=== PATIENT | male | born 1975 | race Caucasian/White ===

== ENCOUNTER 2016-05-04 08:40 | Emergency (ER) | payer OTHER ==
[2016-05-04 08:53] VITALS: BP 137/79
--- NOTE | 2016-05-04 09:06 | UC ---
Eye Complaint HPI - History of Current Complaint Chief Complaint: Freddy Stated Complaint: EYE ISSUE Time Seen by Provider: 05/04/16 08:43 Hx Obtained From: Patient Onset/Duration: Sudden Onset - started last evening with irritation upper L eye lid, awoke with "crusty" on lids, but no discharge since. now lower lid looks red too. denies feeling of FB or pain in eye, no visual changes. has tried no treatment Timing: Constant Severity Initially: Mild Severity Currently: Mild Character: Dull Aggravating Factor(s): Other - touch Alleviating Factor(s): Nothing Associated Signs And Symptoms: Positive: Negative Related History: Similar Episode - has chronic blepharitis - Risk Factors Penetrating Injury Risk Factor: Negative - Allergies/Home Medications Allergies/Adverse Reactions: Allergies Allergy/AdvReac Type Severity Reaction Status Date / Time No Known Allergies Allergy Verified 05/04/16 08:45 PMH/Surg Hx/FS Hx/Imm Hx Previously Healthy: Yes Endocrine History Of: Denies: Diabetes, Thyroid Disease Cardiovascular History Of: Denies: Cardiac Disorders, Hypertension Respiratory History Of: Denies: COPD, Asthma GI/ History Of: Denies: Ulcer - Surgical History Surgical History: Yes Surgery Procedure, Year, and Place: LEFT ARM, 2002, [place]. LEFT KNEE, 2000, [facility] [place]. cholecystectomy - Family History Known Family History: Positive: None Negative: Cardiac Disease - Social History Occupation: Employed Full-time - tool engineer Alcohol Use: Occasionally Substance Use Type: None Smoking Status (MU): Never Smoked Tobacco - Immunization History Most Recent Influenza Vaccination: none Review of Systems Constitutional: Negative Eyes: Eye Redness ENT: Negative Respiratory: Negative Cardiovascular: Negative Neurological: Negative Psychological: Negative All Other Systems Reviewed And Are Negative: Yes Physical Exam Triage Information Reviewed: Yes Appearance: Well-Appearing, No Pain Distress, Well-Nourished Vital Signs: Initial Vital Signs Temp 97.6 F 05/04/16 08:46 Pulse 85 05/04/16 08:46 Resp 16 05/04/16 08:46 BP 137/79 05/04/16 08:46 Pulse Ox 96 05/04/16 08:46 Vital Signs Reviewed: Yes Eyes: Positive: Conjunctiva Clear, Other: - upper L lid mildly swollen and red, puffy appearance, lower lid red without swelling, no discharge. PERRLA, no chalazion or heordeolum ENT Exam: Normal Respiratory Exam: Normal Cardiovascular Exam: Normal Neurological Exam: Normal Neurological: Positive: Alert Psychological Exam: Normal Skin Exam: Normal Eye Complaint Course/Dx - Differential Dx/Diagnosis Differential Diagnosis/HQI/PQRI: Conjunctivitis, Corneal Abrasion, Foreign Body , Periorbital Cellulitis, Other - blepharitis Provider Diagnoses: blepharitis Discharge - Discharge Plan Condition: Good Disposition: HOME Prescriptions: Sulfacetamide 10 % OPTH.RIGO* [Sulamyd 10% Opth*] 2 drop LEFT EYE QID #1 btl Patient Education Materials: Blepharitis (ED) Referrals: Darryl Barnes MD [Primary Care Provider] - 3 Days (if no better) Additional Instructions: apply warm compresses for comfort return if symptoms worsen at any time
== END 2016-05-04 09:22 | disposition home or self-care (01) ==
LOC: UCEAST 08:40
DX: H01.004 Unspecified blepharitis left upper eyelid (principal)
CPT/HCPCS: 99212; G0463

== ENCOUNTER 2016-10-05 01:51 | Observation (INO) | payer OTHER ==
[2016-10-05] MEDS ORDERED: Nitroglycerin 2% OINT* 1 GM PAK TOPICAL ONE (02:42)
[2016-10-05] MEDS ORDERED: Aspirin Low Dose CHEW TAB* 81 MG PO ONE (02:42)
[2016-10-05 03:27] LABS: Hematocrit 46 % (42-52); Hemoglobin 15.8 g/dl (14.0-18.0); Mean Corpuscular HGB Conc 35 g/dl (31-36); Mean Corpuscular Hemoglobin 31 pg (27-31); Mean Corpuscular Volume 91 fL (80-94); Mean Platelet Volume 8 um3 (7.4-10.4); Red Blood Count 5.04 10^6/ul (4.0-5.4); Red Cell Distribution Width 13 % (10.5-15); White Blood Count 7.4 10^3/ul (3.5-10.8)
[2016-10-05 03:44] LABS: Albumin 4.2 g/dL (3.2-5.2); BUN/Creatinine Ratio 22.2 (8-20); Calcium 9.3 mg/dL (8.6-10.3); EGFR African American 120.2 (>60); EGFR Non-African American 93.5 (>60); Magnesium 2.2 mg/dL (1.9-2.7); Potassium 3.9 mmol/L (3.5-5.0); Total Bilirubin 0.4 mg/dL (0.2-1.0); Total Protein 7.2 g/dL (6.4-8.9)
[2016-10-05] MEDS ORDERED: Acetaminophen TAB* 325 MG PO PRN (07:51)
--- NOTE | 2016-10-05 07:51 | RAD ---
HISTORY: Chest pain COMPARISONS: November 09, 2015 VIEWS:1: Single frontal portable view of the chest at 3:31 AM FINDINGS: LINES AND TUBES: None. CARDIOMEDIASTINAL SILHOUETTE: The cardiomediastinal silhouette is normal for portable technique. PLEURA: The costophrenic angles are sharp. No pleural abnormalities are noted. LUNG PARENCHYMA: The lungs are clear. ABDOMEN: The upper abdomen is clear. There is no subphrenic gas. BONES AND SOFT TISSUES: No bone or soft tissue abnormalities are noted. IMPRESSION: NO ACTIVE CARDIOPULMONARY DISEASE.
[2016-10-05 08:25] LABS: C Reactive Protein 4.85 mg/L (< 5.00)
[2016-10-05 08:59] LABS: Erythrocyte Sed Rate 12 mm/Hr (0-14)
[2016-10-05] MEDS ORDERED: Allopurinol TAB* 100 MG PO SCH (09:00)
--- NOTE | 2016-10-05 10:04 | HP ---
[facility] * HISTORY AND PHYSICAL: DATE OF ADMISSION: 10/05/16 PRIMARY CARE PROVIDER: The patient is unsure, but states he is seen at [facility]. CHIEF COMPLAINT: Chest pain. HISTORY OF PRESENT ILLNESS: Mr. Fuller is a 41-year-old man who states that off and on for the last couple of weeks he has been having tightness in the left upper chest. He states that it does seem to come and go. He does not necessarily tie it to any specific activity. The patient states that the pain does not always come on with strenuous activity such as climbing a flight of stairs or walking. The patient states that approximately 1 a.m. the pain was more intense than it had been. He felt a warm sensation across his chest and therefore decided to be seen in the emergency room. He states that he has had no associated shortness of breath, nausea, or diaphoresis with any of the episodes of chest discomfort. Yesterday, he states that he and his were hanging lights up in the garage, so he wondered if it may have been related to that. He also admits to raking a lot of stone recently. The patient states that he does not otherwise recall any trauma to his chest. 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 He states that some days he is at desk , but other days he is incredibly busy at work. Again, he has no concrete association of the pain with any activity. The patient did have nitro paste placed in the emergency room and his chest tightness went away within 5 to 10 minutes. PAST MEDICAL HISTORY: Reactive arthritis. PAST SURGICAL HISTORY: 1. Left knee washout for septic arthritis many years ago. 2. Cholecystectomy. MEDICATIONS: Allopurinol 100 mg p.o. daily. ALLERGIES: No known drug allergies. FAMILY HISTORY: Mom at the age of 56 of breast cancer. Dad is living. He is 73 and healthy. The patient has 1 sister who is healthy. SOCIAL HISTORY: The patient is a nonsmoker. He drinks alcohol on occasion. He works at [employer]. He is . He has 1 child. His is his healthcare proxy. REVIEW OF SYSTEMS: He denies any fever, chills, or anorexia. He admits to chest discomfort as above. No cough. No shortness of breath. No nausea, abdominal pain, or constipation. He does admit to chronic diarrhea. No hemato- chezia, no hematuria, no dysuria, no focal weakness or sensory loss. No sudden change in vision. No dysphagia. He does complain of discomfort in his bilateral elbows. He thinks it is related to raking the stones. No rashes. No anxiety or depression. PHYSICAL EXAMINATION GENERAL: The patient is a well-developed, obese, middle-aged male, sitting on the stretcher, in no acute distress. VITAL SIGNS: Blood pressure 114/73, pulse 69, respirations 14, temp 97.8, O2 sat 96% on room air. HEENT: Pupils are equal, round. Extraocular muscles are intact. Oropharynx is clear. Oral mucosa is moist. NECK: There is no submandibular, cervical, or supraclavicular adenopathy. Thyroid is not enlarged. No thyroid nodules noted. PULMONARY: Lungs are clear to auscultation bilaterally. CARDIAC: Normal S1 and S2. Regular rate and rhythm. I do not appreciate any murmurs. There is no lower extremity edema. There is no pain to palpation over the left side of the chest. ABDOMEN: Bowel sounds are present. Abdomen is soft, nontender, nondistended. MUSCULOSKELETAL: There is no cyanosis or clubbing of the digits. There is full active range of motion of all 4 extremities. SKIN: Warm and dry. There are no rashes. NEURO: Cranial nerves II through XII are grossly intact. Sensation is intact to light touch throughout. Strength is 5/5 and symmetric to both upper and lower extremities bilaterally. PSYCH: The patient is alert. He is oriented x3. Affect appears appropriate. DIAGNOSTIC STUDIES/LAB DATA: Sodium 136, potassium 3.9, chloride 105, CO2 25, BUN 20, creatinine 0.90, glucose 122, calcium 9.3, magnesium 2.2, bilirubin 0.4. AST 29, ALT 49, alk phos 62, CPK 82. Troponin 0.0. BNP 9. Albumin 4.2. INR 0.9. D- dimer less than 200. WBC 7.4, hemoglobin 15.8, hematocrit 46, platelets 171. EKG reveals normal sinus rhythm without any acute ST-T wave abnormalities and is essentially unchanged from EKG in 2016. Chest x-ray, my inspection appears to be clear without any acute findings. ASSESSMENT AND PLAN: Mr. Fuller is a 41-year-old obese male, with no significant past medical history outside of reactive arthritis, on daily allopurinol, who presents to the emergency room with complaints of intermittent chest pain over the last 2 weeks. 1. Chest pain. At this point, I am not convinced that the patient's chest pain is cardiac in nature. He states it is not necessarily associated with strenuous activity. He states he has been raking a lot of stone recently, so I do question whether or not this may be musculoskeletal pain. The patient will be admitted under observation status today to be ruled out for an acute coronary syndrome as well as to have his rhythm monitored. If the patient's troponins bump, he will be converted to inpatient. If they remain negative and no significant arrhythmias are noted, the patient will be discharged home later this afternoon and set up for an outpatient stress test. Of note, the patient MARICRUZ risk score is 1 only for history of anginal episodes. 2. Reactive arthritis. Continue allopurinol 100 mg p.o. daily. 3. DVT prophylaxis: According to the Adult Thrombosis Prophylaxis Risk Factor Assessment Guide, the patient has a total risk factor score of 1 making him low risk. Ambulation will be utilized for DVT prophylaxis. 4. Code status is full. TIME SPENT: 55 minutes was spent admitting this patient. [id number]/[facility] #: [id number] [place]
[2016-10-05] MEDS ORDERED: Cyclobenzaprine TAB* 10 MG PO ONE (12:12)
[2016-10-05 15:10] VITALS: BP 123/67
== END 2016-10-05 16:45 | disposition home or self-care (01) ==
LOC: ED 01:51 → MEDTELE 07:47
PROVIDERS: ADMIT Hospitalist; ATTEND Hospitalist
DX: R07.9 Chest pain, unspecified (principal); R00.1 Bradycardia, unspecified; M02.30 Reiter's disease, unspecified site
CPT/HCPCS: 36415; 71010; 80053; 80061; 82550; 83735; 83880; 84484; 85025; 85379; 85610; 85652; 85730; 86140; 93005; 99284; A9270-GY; G0378

== ENCOUNTER 2019-04-20 15:14 | Emergency (ER) | payer OTHER ==
--- NOTE | 2019-04-20 15:37 | ED ---
Complex/Multi-Sys Presentation - HPI Summary HPI Summary: Patient is a 44 y/o M presenting to the ED for a chief complaint of left knee swelling and pain that began the night of 04/19/19. Patient is present with his . Patient describes the knee pain as a tightness sensation in the posterior aspect of the left knee that has worsened since initial onset. He states his pain is similar to a prior episode of reactive arthritis in the same knee. For the last 2 weeks, patient has also had cold symptoms including nasal congestion , dry cough, and rhinorrhea. Patient denies decreased ROM. Patient's states she "has a virus" so she believes the patient may also have a viral infection. During the last episode of reactive arthritis exacerbation approximately 1 year ago, patient was seen a [facility] and was initially treated for Lyme disease. He was later found to have a septic joint which was drained, washed out, and cleaned. He later had a follow up with a manager product support who suspects the septic joint may have been caused by an autoimmune response after the patient traveled to the [facility]. While at the [facility], he had infectious exposure to several people. The current left knee swelling is improved from the prior occurrence. PMHx is significant for reactive arthritis. Patient denies having a PCP in [place]. 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 - Onset/Duration: Sudden Onset, Still Present Timing: Constant Severity Currently: Moderate Severity Initially: Moderate Associated Signs And Symptoms: Positive: Cough - Dry, Edema - Left knee, Fever - In vitals, 100.0 F - Allergies/Home Medications Allergies/Adverse Reactions: Allergies Allergy/AdvReac Type Severity Reaction Status Date / Time No Known Allergies Allergy Verified 05/04/16 08:45 Home Medications: Home Medications NK [No Home Medications Reported] 04/20/19 [History Confirmed 04/20/19] PMH/Surg Hx/FS Hx/Imm Hx Previously Healthy: Yes Endocrine/Hematology History: Denies: Hx Diabetes, Hx Thyroid Disease Cardiovascular History: Reports: Hx Angina Denies: Hx Coronary Artery Disease, Hx Hypercholesterolemia, Hx Hypertension , Hx Myocardial Infarction, Hx Valvular Heart Disease, Other Cardiovascular Problems/Disorders Respiratory History: Denies: Hx Asthma, Hx Chronic Obstructive Pulmonary Disease (COPD), Other Respiratory Problems/Disorders GI History: Reports: Hx Gall Bladder Disease, Other GI Disorders - rupal Denies: Hx Ulcer Musculoskeletal History: Reports: Hx Arthritis - reactive, Other Musculoskeletal History - septic knee Sensory History: Denies: Hx Contacts or Glasses, Hx Legally Blind, Hx Deafness, Hx Hearing Aid Opthamlomology History: Denies: Hx Contacts or Glasses, Hx Legally Blind EENT History: Denies: Hx Deafness - Surgical History Surgical History: Yes Surgery Procedure, Year, and Place: LEFT ARM, 2002, [place]. LEFT KNEE, 2000, [place]. cholecystectomy Hx Anesthesia Reactions: No Infectious Disease History: No Infectious Disease History: Denies: Hx Clostridium Difficile, Hx Hepatitis, Hx Human Immunodeficiency Virus (HIV), Hx of Known/Suspected MRSA, Hx Shingles, Hx Tuberculosis, Hx Known/ Suspected VRE, Hx Known/Suspected VRSA, History Other Infectious Disease, Traveled Outside the [place] in Last 30 Days - Family History Known Family History: Negative: Cardiac Disease - Social History Occupation: Employed Full-time Lives: With Family Alcohol Use: Occasionally Hx Substance Use: No Substance Use Type: Reports: None Hx Tobacco Use: No Smoking Status (MU): Never Smoked Tobacco Review of Systems Positive: Fever - In vitals, 100.0 F Positive: Nasal Discharge, Other - Positive nasal congestion Positive: Cough - Dry Positive: Arthralgia - Left knee, Edema - Left knee. Negative: Decreased ROM All Other Systems Reviewed And Are Negative: Yes Physical Exam - Summary Physical Exam Summary: Constitutional: Well-developed, Well-nourished, Alert. (-) Distressed Skin: Warm, Dry HENT: Normocephalic; Atraumatic Eyes: Conjunctiva normal Neck: Musculoskeletal ROM normal neck. (-) JVD, (-) Stridor, (-) Nuchal rigidity Cardio: Rhythm regular, rate tachycardic. Heart sounds normal; Intact distal pulses; Radial pulses are 2+ and symmetric. (-) Murmur Pulmonary/Chest wall: Effort normal. (-) Respiratory distress, (-) Wheezes, (-) Rales Abd: Soft, (-) tenderness, (-) Distension, (-) Guarding, (-) Rebound Musculoskeletal: Mild swelling of the left knee, no erythema, full ROM of the knee. No effusions. tenderness L calf. Lymph: (-) Cervical adenopathy Neuro: Alert, Oriented x3 Psych: Mood and affect Normal Triage Information Reviewed: Yes Vital Signs On Initial Exam: Initial Vitals Temp Pulse Resp BP Pulse Ox 100.0 F 102 18 120/84 98 04/20/19 15:15 04/20/19 15:15 04/20/19 15:15 04/20/19 15:15 04/20/19 15:15 Vital Signs Reviewed: Yes Procedures - Sedation Patient Received Moderate/Deep Sedation with Procedure: No Diagnostics - Vital Signs Vital Signs Temp Pulse Resp BP Pulse Ox 04/20/19 15:15 100.0 F 102 18 120/84 98 - Laboratory Result Diagrams: 04/20/19 15:53 04/20/19 15:53 Lab Statement: Any lab studies that have been ordered have been reviewed, and results considered in the medical decision making process. - Radiology Knee X-ray Radiology Interpretation Completed By: Radiologist Summary of Radiographic Findings: Knee X-ray IMPRESSION: SUPERIOR AND INFERIOR PATELLAR SPURRING. THERE IS LUCENCY SEEN THROUGH THE SUPERIOR PATELLAR SPUR WHICH MAY INDICATE A FRACTURE OF UNCERTAIN ACUITY. Reviewed by Dr. Blakely. - Ultrasound Venous Doppler Study Ultrasound Interpretation Completed By: Radiologist Summary of Ultrasound Findings: Venous Doppler Study IMPRESSION: NO LEFT LOWER EXTREMITY DEEP VEIN THROMBOSIS. Reviewed by Dr. Blakely. Complex Multi-Symp Course/Dx Course Of Treatment: 44 y/o male w hx reactive arthritis p/w L knee pain. - full ROM of the left knee, no erythema, minimal tenderness. - patient has low- grade temperature, but reports recent URI symptoms. Labwork without leukocytosis, elevated CRP. X-ray shows a possible small patellar fracture, no known trauma, do not suspect this is cause of patient's pain. No effusions on exam, d/w patient risk of knee arthrocentesis given lack of symptoms and low suspicion for septic joint. Given calf pain was also evaluated for DVT, DVT negative. D/w orthpedic [facility] who also agrees that patient does not have septic joint. Will f/u w orthopedics outpatient. - Diagnoses Provider Diagnoses: Left knee pain, URI (upper respiratory infection) Discharge ED - Sign-Out/Discharge Documenting (check all that apply): Patient Departure - Discharge - Discharge Plan Condition: Stable Disposition: HOME Patient Education Materials: Knee Pain (ED) Referrals: [facility] [address] [Outside] Kel Self MD [Medical Doctor] - Additional Instructions: You were seen in the emergency department for knee pain upper respiratory symptoms. Your x-ray showed a possible small fracture of your patella, you can follow-up with orthopedics regarding this. Your ultrasound did not show any evidence of blood clot. Please follow up with your primary care doctor in next 2-3 days and return to emergency department for fevers, swelling of the knee, redness of the knee, inability to bend your knee or walk, worsening or concerning symptoms. It was a pleasure taking care of you today. - Billing Disposition and Condition Condition: STABLE Disposition: Home - Attestation Statements Document Initiated by Maximiliano: Yes Documenting Scribe: Magi Moya Provider For Whom Maximiliano is Documenting (Include Credential): Familia Blakely MD Scribe Attestation: Magi Bonilla, scribed for Familia Blakely MD on 04/21/19 at 0959. Scribe Documentation Reviewed: Yes Provider Attestation: The documentation as recorded by the Magi gomez accurately reflects the service I personally performed and the decisions made by , Familia Blakely MD Status of Scribe Document: Viewed
[2019-04-20] MEDS ORDERED: Lidocaine 1% INJ* 10 MG/ML 30 ML SDV INJ ONE (15:56)
[2019-04-20 16:11] LABS: ABS Eosinophils 0.2 10^3/ul (0-0.6); ABS Lymphocytes 1.6 10^3/ul (1.0-4.8); ABS Monocytes 0.8 10^3/ul (0-0.8); ABS Neutrophils 5.6 10^3/ul (1.5-7.7); Eosinophil % 1.9 %; Hematocrit 42 % (42-52); Hemoglobin 14.8 g/dL (14.0-18.0); Lymphocyte % 19.5 %; Mean Corpuscular HGB Conc 36 g/dL (31-36); Mean Corpuscular Hemoglobin 32 pg (27-31); Mean Corpuscular Volume 90 fL (80-94); Mean Platelet Volume 8.2 fL (7.4-10.4); Platelet Count 164 10^3/uL (150-450); Red Blood Count 4.61 10^6 /uL (4.18-5.48); Red Cell Distribution Width 12 % (10-15); White Blood Count 8.2 10^3/uL (3.5-10.8)
[2019-04-20 16:23] LABS: Albumin 4.3 g/dL (3.2-5.2); Albumin/Globulin Ratio 1.5 (1-3); BUN/Creatinine Ratio 10.3 (8-20); C Reactive Protein 83.89 mg/L (<8.01); Calcium 9.3 mg/dL (8.6-10.3); EGFR African American 75.6 (>60); EGFR Non-African American 62.5 (>60); Globulin 2.9 g/dL (2-4); Potassium 4.3 mmol/L (3.5-5.0); Total Bilirubin 0.7 mg/dL (0.2-1.0); Total Protein 7.2 g/dL (6.4-8.9)
[2019-04-20] MEDS ORDERED: Acetaminophen TAB* 325 MG PO ONE (17:02)
[2019-04-20 17:29] VITALS: BP 120/87
== END 2019-04-20 17:26 | disposition home or self-care (01) ==
LOC: ED 15:14
DX: M25.562 Pain in left knee (principal); R60.0 Localized edema; J06.9 Acute upper respiratory infection, unspecified
CPT/HCPCS: 36415; 80053; 85025; 86140; 99282

== ENCOUNTER 2019-05-01 14:35 | Emergency (ER) | payer OTHER ==
[2019-05-01 14:59] VITALS: BP 129/82
--- OUTSIDE RECORDS SUMMARY | 2019-05-01 15:11 | XMS REPORT | Summary of Care ---
:1975 Author Organization [facility] Address [address] [facility] [place] [address] Care Team Providers Name Role Phone Cuate Josue Primary Care Provider Other Unavailable Unavailable Reason for Visit Reason Comments Cough pt presents for cough/congestion/fever/body aches/swollen joints. Denies diarrhea/nausea or vomiting. Started about 2 weeks ago. Encounter Details Date Type Department Care Team Description 04/23/2019 Office Visit [facility] Tristian Best MD Febrile illness (Primary Dx); Practice [address] Cough; [address] [place] [address] Reactive arthritis (HCC) [place] [address] [phone] Allergies No Known Allergiesdocumented as of this encounter (statuses as of 04/23/2019) Medications Medication Sig Dispensed Refills Start Date End Date Status doxycycline Take 1 Tab by 20 Tab 0 04/23/2019 Active (VIBRAMYCIN) 100 MG mouth TWICE Oral Tab DAILY. documented as of this encounter (statuses as of 04/23/2019) Active Problems Problem Noted Date Reactive arthritis 05/12/2012 Overview: Multiple site involved; presented with monoarthritis after visit to [facility], has had circinate balanitis, urethritis, blepharitis and mild arthritis Gout 05/12/2012 documented as of this encounter (statuses as of 04/23/2019) Immunizations Name Administration Dates Next Due Influenza (IM) Preservative Free 12/22/2018, 12/01/2017 documented as of this encounter Social History Tobacco Use Types Packs/Day Years Used Date Never Smoker Smokeless Tobacco: Never Used Alcohol Use Drinks/Week oz/Week Comments Yes 10 Standard drinks or equivalent 10.0 Sex Assigned at Date Recorded Not on file documented as of this encounter Last Filed Vital Signs Vital Sign Reading Time Taken Comments Blood Pressure 104/68 04/23/2019 1:55 PM EST Pulse 96 04/23/2019 1:55 PM EST Temperature 37.4 04/23/2019 1:55 PM EST C (99.3 F) Respiratory Rate - - Oxygen Saturation 97% 04/23/2019 1:55 PM EST Inhaled Oxygen Concentration - - Weight 109 kg (240 lb 3.2 oz) 04/23/2019 1:55 PM EST Height 175.3 cm (5' 9") 04/23/2019 1:55 PM EST Body Mass Index 35.47 04/23/2019 1:55 PM EST documented in this encounter Progress Notes Tristian Best MD - 04/23/2019 1:40 PM EST PATIENT: Kevin Fuller : 1975 DATE OF SERVICE: 04/23/2019 CHIEF COMPLAINT: Chief Complaint Patient presents with ? Cough pt presents for cough/congestion/fever/body aches/swollen joints. Denies diarrhea/nausea or vomiting. Started about 2 weeks ago. Subjective HISTORY OF PRESENT ILLNESS: Kevin Fuller is a 44-y.o. male. In for URI symptoms x 2 weeks In those 2 weeks felt better just 1 day a week ago. ST in the beginning , nasal congestion colored mucus currently , no MENDIOLA, + coughup mucus. Not SOB, fever to 100 1 week ago and last 3 days night sweats. In that time period went to ER for left knee pain. Hx of septic knee 10 years ago. . The ER did ultrasound and x ray and labs and told some inflammation crp is 83 with normal = 8 Normal cbc and cmp . Not see ortho yet. Leg got worse but better today , No recent travel but works at [employer] and is all over the place Past Medical History: Diagnosis Date ? Blepharitis ? Gout ? Obesity ? Reactive arthritis (HCC) Family History Problem Relation Age of Onset ? Diabetes Maternal Grandmother ? Diabetes Paternal Grandmother ? Breast Cancer Mother 54 No current outpatient medications on file. No current facility-administered medications for this visit. No Known Allergies Social History Socioeconomic History ? Marital status: Spouse name: Not on file ? Number of children: Not on file ? Years of education: Not on file ? Highest education level: Not on file Occupational History ? Not on file Social Needs ? Financial resource strain: Not on file ? Food insecurity Worry: Not on file Inability: Not on file ? Transportation needs Medical: Not on file Non-medical: Not on file Tobacco Use ? Smoking status: Never Smoker ? Smokeless tobacco: Never Used Substance and Sexual Activity ? Alcohol use: Yes Alcohol/week: 10.0 standard drinks Types: 10 Standard drinks or equivalent per week ? Drug use: No ? Sexual activity: Yes Lifestyle ? Physical activity Days per week: Not on file Minutes per session: Not on file ? Stress: Not on file Relationships ? Social connections Talks on phone: Not on file Gets together: Not on file Attends church service: Not on file Active member of club or organization: Not on file Attends meetings of clubs or organizations: Not on file Relationship status: Not on file ? Intimate partner violence Fear of current or ex partner: Not on file Emotionally abused: Not on file Physically abused: Not on file Forced sexual activity: Not on file Other Topics Concern ? Back Care Not Asked ? Bike Helmet Not Asked ? Blood Transfusions Not Asked ? Caffeine Concern Not Asked ? Exercise Not Asked ? Hobby Hazards Not Asked ? International Travel Not Asked ? Service Not Asked ? Occupational Exposure Not Asked ? Seat Belt Not Asked ? Self-Exams Not Asked ? Sleep Concern No ? Special Diet No ? Stress Concern No ? Weight Concern Yes Social History Narrative Freddy diaz Lives with . Over the last 2 weeks, have you been feeling down, depressed, anxious, or hopeless?: 0 Over the past 2 weeks, have you felt little interest or pleasure in doing things ?: 0 REVIEW OF SYSTEMS: ROS Objective PHYSICAL EXAM: VITALS: BP 104/68 (BP Location: Right arm, Patient Position: Sitting) | Pulse 96 | Temp 99.3 F (37.4 C) | Ht 5' 9" (1.753 m) | Wt 240 lb 3.2 oz ( 109 kg) | SpO2 97% | BMI 35.47 kg/m Body mass index is 35.47 kg/m. Physical Exam Vitals signs reviewed. Constitutional: General: He is not in acute distress. Appearance: He is ill-appearing. He is not toxic-appearing. HENT: Ears: Comments: Ears - bilateral TM's and external ear canals normal, right external ear normal, left externalear normal Mouth/Throat: Pharynx: Oropharynx is clear. Eyes: Comments: Eyes always inflamed Cardiovascular: Rate and Rhythm: Normal rate and regular rhythm. Pulmonary: Effort: Pulmonary effort is normal. No respiratory distress. Breath sounds: Normal breath sounds. No wheezing or rales. Musculoskeletal: Comments: Knee slight swollen and not red or hot with adequate ROM Lymphadenopathy: Cervical: No cervical adenopathy. CXR normal my read Maybe little patchy on the left ASSESSMENT / IMPRESSION: ICD-9-CM ICD-10-CM 1. Febrile illness . Flu shouldve been over by 2 weeks but I tested him anyway just to see what we are dealing with . This illness began 2 weeks ago so timing not really match concerns for heredia virus. I dont feel his fever is due to the knee Getting the labs to see if crp improving Otherwise since sweats and symptoms x 2 weeks will give antibiotics 780.60 R50.9 CBC WITH DIFFERENTIAL C-REACTIVE PROTEIN FLU A/FLU B/RSV PCR ASSAY (TESTED AT [facility] ONLY) FLU A/FLU B/RSV PCR ASSAY (TESTED AT [facility] ONLY) 2. Cough 786.2 R05 XR CHEST 2 VIEW PA AND LATERAL (STANDARD) 3. Reactive arthritis (HCC) I believe the knee is a reaction to the resoiratory arthritis 099.3 M02.30 711.10 Plan Author: Tristian Best MD 04/23/2019 14:01 documented in this encounter Plan of Treatment Name Type Priority Associated Diagnoses Date/Time XR CHEST 2 VIEW PA AND Imaging Routine Cough 04/23/2019 2:21 PM LATERAL (STANDARD) EST CBC WITH DIFFERENTIAL Lab Routine Febrile illness 04/23/2019 2:34 PM EST C-REACTIVE PROTEIN Lab Routine Febrile illness 04/23/2019 2:34 PM EST FLU A/FLU B/RSV PCR ASSAY Lab Routine Febrile illness 04/23/2019 2:15 PM (TESTED AT [facility] EST ONLY) Name Type Priority Associated Diagnoses Order Schedule XR CHEST 2 VIEW PA AND Imaging Routine Cough Expected: 04/23/2019, LATERAL (STANDARD) Expires: 04/22/2020 FLU A/FLU B/RSV PCR Lab Routine Febrile illness 1 Occurrences starting ASSAY (TESTED AT [facility] 04/23/2019 until LAB ONLY) 10/20/2019 Health Maintenance Due Date Last Done Comments DTaP/Tdap/Td Vaccines (1 - 01/06/1987 Tdap) DIABETES SCREENING 11/27/2019 11/26/2018 DEPRESSION SCREENING 04/22/2020 04/23/2019 LIPID DISORDER SCREENING 11/27/2023 11/26/2018 INFLUENZA VACCINE Completed 12/22/2018, 12/01/2017 HEPATITIS A IMMUNIZATION Aged Out No longer eligible based SERIES on patient's age to complete this topic HPV IMMUNIZATION SERIES Aged Out No longer eligible based on patient's age to complete this topic MENINGOCOCCAL VACCINE IMM Aged Out No longer eligible based on patient's age to complete this topic PNEUMOCOCCAL 0-64 YRS Aged Out No longer eligible based on patient's age to complete this topic documented as of this encounter Results Not on filedocumented in this encounter Visit Diagnoses Diagnosis Cough Febrile illness Fever, unspecified Reactive arthritis (HCC) Cherry's disease documented in this encounter Insurance Payer Benefit Plan / Subscriber ID Effective Dates Phone Address Type Group LIFETIME LIFETIME BENEFIT [id number] 2016-Lisa [employer] Guarantor Name Account Type Relation to Date of Phone Billing Address Patient Kevin Fuller Personal/Family 1975 [address] [facility] (Home) [facility] [phone] [place], [place] (Work) [id number] documented as of this encounter
--- OUTSIDE RECORDS SUMMARY | 2019-05-01 15:11 | XMS REPORT | Summary of Care ---
:1975 Author Organization [facility] Address [address] [place] [address] Care Team Providers Name Role Phone JoseloCuate Arianne Primary Care Provider Other Unavailable Unavailable Reason for Visit Reason Comments Leg Pain pt states pain has radiated to left ankle. hurts to walk/ stand ( ongoing for 2 weeks ) Encounter Details Date Type Department Care Team Description 04/30/2019 Office Visit [facility] Shadia Mascorro, Ankle pain, Practice PA-C unspecified [address] [facility] [facility] chronicity, [place] [address] [place] [address] unspecified laterality [phone] (Primary Dx) Allergies No Known Allergiesdocumented as of this encounter (statuses as of 04/30/2019) Medications Medication Sig Dispensed Refills Start Date End Date Status doxycycline Take 1 Tab by 20 Tab 0 04/23/2019 Active (VIBRAMYCIN) 100 MG mouth TWICE Oral Tab DAILY. ibuprofen (ADVIL) 200 Take 200 mg by 0 Active MG Oral Tab mouth EVERY SIX HOURS NEEDED for Pain. colchicine (COLSALIDE) Take 1 Tab by 30 Tab 0 04/30/2019 Active 0.6 MG Oral Tab mouth DAILY. documented as of this encounter (statuses as of 04/30/2019) Active Problems Problem Noted Date Reactive arthritis 05/12/2012 Overview: Multiple site involved; presented with monoarthritis after visit to [facility], has had circinate balanitis, urethritis, blepharitis and mild arthritis Gout 05/12/2012 documented as of this encounter (statuses as of 04/30/2019) Immunizations Name Administration Dates Next Due Influenza [...] Sign Reading Time Taken Comments Blood Pressure 110/80 04/30/2019 7:13 AM EDT Pulse 65 04/30/2019 7:13 AM EDT Temperature 36.3 04/30/2019 7:13 AM EDT C (97.4 F) Respiratory Rate - - Oxygen Saturation 98% 04/30/2019 7:13 AM EDT Inhaled Oxygen Concentration - - Weight 106.6 kg (235 lb) 04/30/2019 7:13 AM EDT Height 175.3 cm (5' 9") 04/30/2019 7:13 AM EDT Body Mass Index 34.7 04/30/2019 7:13 AM EDT documented in this encounter Patient Instructions Patient InstructionsDoShadia raines PA-C - 04/30/2019 7:00 AM EDTDiscussed with patient could be gout flare up Escribed colchicine 0.6mg, 2 pills immediately, 1 at bedtime, 1 pill BID x 2 days, 1 pill daily x 3 days Ordered uric acid -- will do now -- will call with results Avoid foods high in purines -- red meat, fish, lunch meat, alcohol Push water, dairy Call Friday if no improvement documented in this encounter Progress Notes Shadia Mascorro PA-C - 04/30/2019 7:00 AM EDT PATIENT: Kevin Fuller : 1975 DATE OF SERVICE: 04/30/2019 REFERRING PRACTITIONER: Self-Referred PRIMARY CARE PROVIDER: Cuate Josue CHIEF COMPLAINT: Chief Complaint Patient presents with ? Leg Pain pt states pain has radiated to left ankle. hurts to walk/ stand ( ongoing for 2 weeks ) Subjective HISTORY OF PRESENT ILLNESS: Kevin Fuller is a 44-y.o. male who presents with left ankle pain, swelling x 2 weeks Says it hurts to walk and stand 04/20/19 Went to [facility], had US and xray -- normal Normal CBC and CMP CReative protein: 83 History of septic knee [address] Ross 04/26/19, was referred to payroll technician -- appointment is 8 months from now 04/23/[address] Best, diagnosed with febrile illness, cough and reactive arthritis Prescribed doxy 100mg BID x 10 days -- has a few more days left Dr. Best ordered labs Lab Results Component Value Date WBC 8.90 04/23/2019 HGB 14.7 04/23/2019 HCT 43.5 04/23/2019 PLAT 226 04/23/2019 Flu: negative Chest xray: 1. No acute cardiopulmonary disease is seen. C-reactive protein 4.30 Has gout in past, last flare 2.5 yrs ago Fish once weekly Walk constantly Denies fever, chills, nausea, vomiting, diarrhea, chest pains, SOB Past Medical History: Diagnosis Date ? Blepharitis ? Gout ? Obesity ? Reactive arthritis (HCC) Past Surgical History: Procedure Laterality Date ? CHOLECYSTECTOMY Family History Problem Relation Age of Onset ? Diabetes Maternal Grandmother ? Diabetes Paternal Grandmother ? Breast Cancer Mother 54 Current Outpatient Medications Medication Sig ? doxycycline (VIBRAMYCIN) 100 MG Oral Tab Take 1 Tab by mouth TWICE DAILY. No current facility-administered medications for this visit. [...] file Gets together: Not on file Attends adventism service: Not on file Active member of [...] History Narrative Freddy diaz Lives with . REVIEW OF SYSTEMS: Skin: negative skin lesions Eyes: negative visual blurring Ears/Nose/Throat: negative rhinorrhea or sore throat Respiratory: negative cough Cardiovascular: negative chest pain Gastrointestinal: negative abdominal pain, constipation, diarrhea, nausea or vomiting Genitourinary: negative burning on urination, dysuria or vaginal discharge Musculoskeletal: positive left lower leg pain -- see hpi Neurologic: negative numbness or tingling of feet or hands Psychiatric: negative anxiety Hematologic/Lymphatic/Immunologic: negative allergies Endocrine: negative diabetes or hot flashes/sweats Objective PHYSICAL EXAMINATION: VITALS: BP 110/80 (BP Location: Right arm, Patient Position: Sitting) | Temp 97.4 F (36.3 C) | Ht 5' 9" (1.753 m) | Wt 235 lb (106.6 kg) | BMI 34.70 kg/m Body mass index is 34.7 kg/m. General appearance - alert, moderate distress, cooperative, oriented times 3 Skin - Skin color, texture, turgor normal. No rashes or lesions. Head - Normocephalic. No masses, lesions, tenderness or abnormalities Eyes - conjunctivae/corneas clear. PERRL, EOM's intact. Neck - Neck supple, FROM. No cervical or supraclavicularadenopathy. Left ankle/foot lateral malleolus - moderate edema, mild erythema. Pain with palpation Tightness with dorsi and plantarflex. Pain in inversion and eversion. Pain with weightbearing Lungs - Good diaphragmatic excursion. Lungs clear. Chest symmetrical. Normal breath sounds. Heart - RRR. No murmurs, clicks or gallops. No peripheral edema. . . IMPRESSION: ICD-9-CM ICD-10-CM 1. Ankle pain, unspecified chronicity, unspecified laterality 719.47 M25.579 URIC ACID Plan PLAN: Discussed with patient could be gout flare up Escribed colchicine 0.6mg, 2 pills immediately, 1 at bedtime, 1 pill BID x 2 days, 1 pill daily x 3 days Ordered uric acid -- will do now -- will call with results Avoid foods high in purines -- red meat, fish, lunch meat, alcohol Push water, dairy Call Friday if no improvement Author: Shadia Mascorro PA-C 04/30/2019 07:08 documented in this encounter Plan of Treatment Name Type Priority Associated Diagnoses Date/Time URIC ACID Lab Routine Ankle pain, unspecified chronicity, 04/30/2019 8:16 AM EDT unspecified laterality Name Type Priority Associated Diagnoses Order Schedule URIC ACID Lab Routine Ankle pain, unspecified Expected: 04/30/2019 chronicity, unspecified (Approximate), Expires: laterality 04/29/2020 Health Maintenance Due Date Last Done Comments DTaP/Tdap/Td Vaccines ( - 01/06/1987 Tdap) DIABETES SCREENING 11/27/2019 11/26/2018 [...] filedocumented in this encounter Visit Diagnoses Diagnosis Ankle pain, unspecified chronicity, unspecified laterality documented in this encounter Insurance Payer Benefit Plan / Subscriber ID Effective Dates Phone Address Type Group LIFETIME LIFETIME BENEFIT [id number] 2016-[employer]isa [employer] Guarantor Name Account Type Relation to Date of Phone Billing Address Patient Kevin Fuller Personal/Family 1975 [address] [facility] (Home) [facility] [phone] [place] (Work) [phone] documented as of this encounter
--- OUTSIDE RECORDS SUMMARY | 2019-05-01 15:11 | XMS REPORT | Continuity of Care Document ---
:1975 External Reference #:[id number] Author Name Jr Ross M.D. (transmitted by agent of provider Marquita Jones) Address [address] [facility] [place] [address] Care Team Providers Name Role Phone [facility] Care Team Information Copy Lathe Operator [phone] Problems Description No Information Available Social History Type Date Description Comments Sex Unknown ETOH Use Currently consumes alcohol Tobacco Use Start: Unknown Patient has never smoked Smoking Status Reviewed: 04/26/19 Patient has never smoked Exercise Type/Frequency Exercises regularly Allergies, Adverse Reactions, Alerts Description No Known Drug Allergies Medications Active Medications SIG Qnty Indications Ordering Provider Date Antibiotic For A Cold Unknown Immunizations Description No Information Available Vital Signs Date Vital Result Comment 04/26/2019 8:14am Height 69 inches 5'9" Weight 230.00 lb Heart Rate 78 /min Body Temperature 96.8 F O2 % BldC Oximetry 97 % BMI (Body Mass Index) 34.0 kg/m2 Results Description No Information Available Procedures Description No Information Available Medical Devices Description No Information Available Encounters Type Date Location Provider Dx Diagnosis Office Visit 04/26/2019 [facility] Jr Ross M.D. M13.862 Other specified 8:00a at [place] arthritis, left knee Assessments Date Code Description Provider 04/26/2019 M13.862 Other specified arthritis, left knee Jr Ross M.D. Plan of Treatment 04/26/2019 - Jr Ross M.D.M13.862 Other specified arthritis, left kneeReferral:Jourdan Ramos MD, RheumatologyFollow up:Follow up: Functional Status Description No Information Available Mental Status Description No Information Available Referrals Refer to Reason for Referral Status Appt Date Jourdan Ramos MD Created [address], [place] [address] [phone]
== END 2019-05-01 16:14 | disposition left against medical advice (07) ==
LOC: ED 14:35
DX: M25.572 Pain in left ankle and joints of left foot (principal)
CPT/HCPCS: 99281